=== PATIENT | male | born 1945 | race Caucasian/White ===

== ENCOUNTER → 2024-06-01 | Outpatient (CLI) | payer MEDICARE, OTHER ==
[2024-06-01 12:50] LABS: CHOLESTEROL 128 mg/dL (<200); HDL CHOLESTEROL 43 mg/dL (29-71); LDL DIRECT 59 mg/dL (0-99); TRIGLYCERIDES 149 mg/dL (30-200)
== END | disposition home or self-care (01) ==
LOC: LAB 08:33
PROVIDERS: ATTEND Student in an Organized Health Care Education/Training Program
DX: E78.2 Mixed hyperlipidemia (principal)
CPT/HCPCS: 36415; 80061

== ENCOUNTER → 2024-06-01 | Outpatient (CLI) | payer MEDICARE, OTHER ==
--- NOTE | 2024-06-02 13:31 | HMCSR ---
APPROVED REPORT EXAM: Two-dimensional and M-mode echocardiogram with Doppler and color Doppler. INDICATION ICD: I50.3 Diastolic (congestive) heart failure 2D Dimensions RVDd3.9 cmLVEF(%)43.5 (>50%)LVED Vol(simp.)136.0 mL IVSd1.2 (0.7-1.1cm)FS(%)22 %LVES Vol(simp.)64.0 mL LVDd5.3 (3.8-5.6cm)Ao Root(2D)3.7 (2.0-3.7cm)LVEF(%, simp.)52 % PWd1.1 (0.7-1.1cm)LVOT diam2.3 (1.8-2.4cm)LA ESV INDEX (BP)38.27 mL/m2 LVDs4.2 (2.5-4.0cm)IVC diam2.3 cm Aortic Valve AoV Vmax1.7 m/Kristina Peak GR11.7 mmHgLVOT Vmax1.2 m/s AoV VTI0.4 mAo Mean GR6.3 mmHgLVOT VTI0.24 m DIANA (VMAX)2.8 cm2AVA (VTI) 2.8 cm2 Mitral Valve MV E Vmax84.0 cm/sDECEL Vpms684 ms MV A Vmax41.7 cm/sP 1/2 T56 ms E/A ratio2.0MVA (PHT)3.9 cm2 MR Max PG54 mmHg TDI E/E' Medial9.7E/E' [id number] Pulmonary Valve PV Vmax1.2 m/sPV VTI0.24 mPV Mean GR3 mmHg PV Peak GR5.9 mmHg Tricuspid Valve TR Vmax2.8 m/sRAP (EST) 8 izJkRYAM20.0 mmHg TR Peak GR31.0 mmHg Left Ventricle Left ventricular cavity size is normal. There is mild left ventricular hypertrophy. LVEF is 45-50%. S tage II, diastolic dysfunction. Right Ventricle The right ventricle is normal size. The right ventricular systolic function is normal. Atria The left atrium is mildly dilated. The right atrium size appears normal. Aortic Valve Aortic valve is trileaflet. Aortic valve is mildly calcified. Trace aortic regurgitation. There is no aortic valvular stenosis. Mitral Valve Mitral valve leaflets appear normal. Mitral regurgitation is trace. There is no mitral valve stenosis . Tricuspid Valve The tricuspid valve leaflets appear normal. There is mild tricuspid regurgitation. Right ventricular systolic pressure is estimated at 30-40 mmHg. Pulmonic Valve Pulmonic valve is not well visualized. Great Vessels The aortic root is normal in size. IVC is dilated and collapses >50% with inspiration. Pericardium No pericardial effusion. Other Information Quality : Technically Limited Technically limited study due to body habitus. Conclusion Left ventricular cavity size is normal. LVEF is 45-50%. Stage II, diastolic dysfunction. The right ventricle is normal size. The right ventricular systolic function is normal. The left atrium is mildly dilated. The right atrium size appears normal. There is mild tricuspid regurgitation. Right ventricular systolic pressure is estimated at 30-40 mmHg. IVC is dilated and collapses >50% with inspiration. No pericardial effusion.
== END | disposition home or self-care (01) ==
LOC: SHCH 09:49
PROVIDERS: ATTEND Student in an Organized Health Care Education/Training Program
DX: I08.2 Rheumatic disorders of both aortic and tricuspid valves (principal); I50.30 Unspecified diastolic (congestive) heart failure
CPT/HCPCS: 93306